=== PATIENT | male | born 1975 | race Caucasian/White ===

== ENCOUNTER 2019-01-22 11:44 | Emergency (ER) | payer SELFPAY ==
[~2019-01-22] VITALS: Ht 185.4 cm; Wt 140.6 kg
[2019-01-22 11:49] VITALS: BP 174/107
[2019-01-22] MEDS: ENALAPRIL 5 MG TAB PO ONE (12:13)
[2019-01-22 13:15] VITALS: BP 139/78
== END 2019-01-22 13:15 | disposition home or self-care (01) ==
LOC: MED 11:44
DX: I10 Essential (primary) hypertension (principal); F17.200 Nicotine dependence, unspecified, uncomplicated; Z98.890 Other specified postprocedural states; Z88.8 Allergy status to other drugs, medicaments and biological substances
CPT/HCPCS: 99283

== ENCOUNTER 2019-09-24 07:52 | Emergency (ER) | payer SELFPAY ==
[~2019-09-24] VITALS: Ht 185.4 cm; Wt 140.6 kg
[2019-09-24 07:55] VITALS: BP 132/65
[2019-09-24 08:36] VITALS: BP 132/65
== END 2019-09-24 08:37 | disposition home or self-care (01) ==
LOC: MED 07:52
DX: I10 Essential (primary) hypertension (principal); E11.8 Type 2 diabetes mellitus with unspecified complications; Z88.8 Allergy status to other drugs, medicaments and biological substances; Z76.0 Encounter for issue of repeat prescription
CPT/HCPCS: 99283